=== PATIENT | male | born 1970 | race Caucasian/White ===

== ENCOUNTER 2018-11-19 01:57 | Emergency (ER) | payer OTHER ==
[2018-11-19 02:16] VITALS: TEMP 98.7
--- NOTE | 2018-11-19 03:03 | ED ---
General Adult HPI - General Chief complaint: Extremity Injury, Lower Stated complaint: [facility] leg pain Time Seen by Provider: 11/19/18 02:21 Source: patient, RN notes reviewed, old records reviewed Mode of arrival: ambulatory Limitations: no limitations - History of Present Illness Initial comments: 48-year-old male patient presents to ED with left calf injury. Patient reports that he stepped down from a ladder when he felt a pop in his left calf region. Patient now has pain with walking. Patient denies any fall. Patient denies any other complaints. Systemic: Pt denies fatigue, fever/chills, rash. Pt denies weakness, night sweats, weight loss. Neuro: Pt denies headache, visual disturbances, syncope or pre-syncope. HEENT: Pt denies ocular discharge or irritation, otalgia, rhinorrhea, pharyngitis or notable lymphadenopathy. Cardiopulmonary: Pt denies chest pain, SOB, heart palpitations, dyspnea on exertion. Abdominal/GI: Pt denies abdominal pain, n/v/d. : Pt denies dysuria, burning w/ urination, frequency/urgency. Denies new onset urinary or bowel incontinence. MSK: Pt denies loss of strength or function in extremities. Neuro: Pt denies new onset weakness, paresthesias. - Related Data Allergies Allergy/AdvReac Type Severity Reaction Status Date / Time bee venom protein (honey bee) Allergy Anaphylaxis Verified 11/19/18 02:16 Review of Systems ROS Statement: Those systems with pertinent positive or pertinent negative responses have been documented in the HPI. ROS Other: All systems not noted in ROS Statement are negative. Past Medical History Past Medical History: No Reported History History of Any Multi-Drug Resistant Organisms: None Reported Past Surgical History: No Surgical Hx Reported Past Psychological History: No Psychological Hx Reported Smoking Status: Current every day smoker Past Alcohol Use History: Occasional Past Drug Use History: None Reported General Exam - General Exam Comments Initial Comments: Constitutional: NAD, AOX3, Pt has pleasant affect. HEENT: NC/AT, trachea midline, neck supple, no lymphadenopathy. Posterior pharynx non erythematous, without exudates. External ears appear normal, without discharge. Mucous membranes moist. Eyes PERRLA, EOM intact. There is no scleral icterus. No pallor noted. Cardiopulmonary: RRR, no murmurs, rubs or gallops, no JVD noted. Lungs CTAB in a nterior and posterior hernandez. No peripheral edema. Abdominal exam: Abdomen soft and non-distended. Abdomen non-tender to palpation in all 4 quadrants. Bowel sounds active in LLQ. No hepatosplenomegaly. No ecchymosis Neuro: CN II-XII grossly intact. No nuchal rigidity. MSK: Plantar and dorsiflexion of left lower extremity intact. Distal pulses intact equal. Posterior calf mildly tenderness to palpation. Pederson test negative. homans sign negative bilaterally. Patient placed in posterior ankle splint. Patient neurovascularly intact after splint placement. Posterior tibialis and radial pulse +2 bilaterally. Sensation intact in upper and lower extremities. Full active ROM in upper and lower extremities, 5/5 stregnth. Limitations: no limitations Course Vital Signs 11/19/18 02:13 Temperature 98.7 F Pulse Rate 84 Respiratory 18 Rate Blood Pressure 142/87 O2 Sat by Pulse 96 Oximetry Medical Decision Making - Medical Decision Making 48-year-old male patient presents to ED with left calf injury. Patient reports that he stepped down from a ladder when he felt a pop in his left calf region. Patient now has pain with walking. Patient denies any fall. Patient denies any other complaints. Patient vital signs stable, afebrile. Physical exam displayed: Plantar and dorsiflexion of left lower extremity intact. Distal pulses intact equal. Posterior calf mildly tenderness to palpation. Pederson test negative. homans sign negative bilaterally. Patient placed in posterior ankle splint. Patient neurovascularly intact after splint placement. When fell and tibia-fibula did not display acute process. Patient will discharge, will use crutches, will not bear weight until orthopedic follow-up. Patient will return here if condition worsens in any way. Case discussed with Dr. Apodaca. Disposition Clinical Impression: Gastrocnemius strain Disposition: HOME SELF-CARE Condition: Stable Instructions (If sedation given, give patient instructions): Muscle Strain (ED) Additional Instructions: Patient to adhere to previously discussed treatment plan and will take medication(s) as directed. Patient to follow up with PCP in 1-2 days. Patient to return to ED if symptoms do not improve. Leads use crutches, please do not bear weight on leg until orthopedic follow-up. Please follow up with orthopedic consult 1-2 days. Please return to ER if condition worsens in any way. Is patient prescribed a controlled substance at d/c from ED?: No Referrals: Anuj Connor MD [Primary Care Provider] - 1-2 days Eron Mccauley MD [STAFF PHYSICIAN] - 1-2 days
--- NOTE | 2018-11-19 03:04 | XR ---
EXAM: XR Left Tibia and Fibula, 2 Views CLINICAL HISTORY: pt. Stepping down a ladder and felt something pop in his left calf. TECHNIQUE: Frontal and lateral views of the left tibia and fibula. COMPARISON: No relevant prior studies available. FINDINGS: Bones/joints: 9 x 11 mm os trigonum. No acute fracture. No dislocation. Soft tissues: Unremarkable. No radiopaque foreign body. IMPRESSION: No acute fracture.
[2018-11-19 03:32] VITALS: BP 142/88; PULSE 80; RESP 17
== END 2018-11-19 03:40 | disposition home or self-care (01) ==
LOC: EC 01:57
DX: S86.112A Strain of other muscle(s) and tendon(s) of posterior muscle group at lower leg level, left leg, initial encounter (principal); F17.200 Nicotine dependence, unspecified, uncomplicated; Z91.030 Bee allergy status; X50.9XXA Other and unspecified overexertion or strenuous movements or postures, initial encounter; Y92.69 Other specified industrial and construction area as the place of occurrence of the external cause; Y99.0 Civilian activity done for income or pay
CPT/HCPCS: 29515; 99284

== ENCOUNTER 2018-11-29 09:33 | Emergency (ER) | payer BC ==
[2018-11-29] MEDS ORDERED: IBUPROFEN 600 MG TAB PO STA (10:03)
[2018-11-29] MEDS ORDERED: HYDROcodone/APAP 5-325MG 1 EACH TAB PO STA (10:03)
--- NOTE | 2018-11-29 10:06 | ED ---
General Adult HPI - General Chief complaint: Extremity Injury, Upper Stated complaint: Wrist/arm injury Time Seen by Provider: 11/29/18 09:40 Source: patient, RN notes reviewed Mode of arrival: ambulatory Limitations: no limitations - History of Present Illness Initial comments: This is a 48-year-old male presents emergency Department complaining of right wrist pain. Patient states last night he was up patient slipped on a boat fell on his wrist and ever since then his wrist has been hurting and very tender to palpation. Patient states he has full movement of his fingers elbow and shoulder. Patient states any movement of the wrist hurts. Patient states he did continue finishing throughout the night. Patient denies any other injury patient denies any head or neck. - Related Data Home Medications Medication Instructions Recorded Confirmed Ibuprofen [Motrin Ib] 400 mg PO Q6H PRN 11/29/18 11/29/18 Allergies Allergy/AdvReac Type Severity Reaction Status Date / Time bee venom protein (honey bee) Allergy Anaphylaxis Verified 11/29/18 10:18 Review of Systems ROS Statement: Those systems with pertinent positive or pertinent negative responses have been documented in the HPI. ROS Other: All systems not noted in ROS Statement are negative. Past Medical History Past Medical History: No Reported History History of Any Multi-Drug Resistant Organisms: None Reported Past Surgical History: No Surgical Hx Reported Past Psychological History: No Psychological Hx Reported Smoking Status: Current every day smoker Past Alcohol Use History: Occasional Past Drug Use History: None Reported General Exam - General Exam Comments Initial Comments: GENERAL: Patient is well-developed and well-nourished. Patient is nontoxic and well- hydrated and is in mild distress. ENT: Neck is soft and supple. Neck has full range of motion without eliciting any pain. EYES: The sclera were anicteric and conjunctiva were pink and moist. Extraocular movements were intact and pupils were equal round and reactive to light. Eyelids were unremarkable. SKIN: Skin is clear with no lesions or rashes and otherwise unremarkable. NEUROLOGIC: Patient is alert and oriented x3. Cranial nerves II through XII are grossly intact. Motor and sensory are also intact. Normal speech, volume and content. Symmetrical smile. MUSCULOSKELETAL: Right wrist is tender to palpation along the radius and posterior aspect of the wrist. LYMPHATICS: No significant lymphadenopathy is noted PSYCHIATRIC: Normal psychiatric evaluation. Limitations: no limitations Course Vital Signs 0511/29/18 11/29/18 09:35 11:17 11:35 Temperature 98.8 F Pulse Rate 91 70 68 Respiratory 18 18 15 Rate Blood Pressure 136/80 134/71 133/80 O2 Sat by Pulse 95 98 99 Oximetry Procedures - Orthopedic Fracture Reduction Fracture #1 Consent Obtained: verbal consent, written consent Side: right Fracture Reduction Location: radius Analgesia: procedural sedation Technique: direct manipulation, traction/counter-traction Post-Reduction Neuro Exam: intact Post-Reduction Vascular Exam: intact Splint Applied: Yes Patient Tolerated Procedure: well - Orthopedic Splinting/Casting Injury #1 Side: right Upper Extremity Injury Location: short arm, wrist Upper Extremity Immobilizer: volar splint - Procedural Sedation Procedural Sedation Start Time: 11:40 Procedural Sedation Stop Time: 12:05 Indications: fracture/dislocation reduction ASA Class: I Preparation: patient monitor applied, pulse oximeter, capnometry used, supplemental O2 applied IV Etomidate Dose (mgs): 20 Complications: none Patient Tolerated Procedure: well Medical Decision Making - Medical Decision Making X-ray shows a comminuted distal radius fracture with displacement anteriorly. Disposition Clinical Impression: Distal radius fracture Disposition: HOME SELF-CARE Condition: Good Instructions (If sedation given, give patient instructions): Wrist Fracture in Adults (ED) Is patient prescribed a controlled substance at d/c from ED?: No Referrals: Burton Resendiz MD [Medical Doctor] - 1-2 days Time of Disposition: 11:48
--- NOTE | 2018-11-29 10:54 | XR ---
EXAMINATION TYPE: XR wrist complete RT DATE OF EXAM: 11/29/2018 COMPARISON: None HISTORY: Fall TECHNIQUE: 4 view right wrist FINDINGS: There is a comminuted fracture the distal metaphyseal radius. This is partially impacted. T here is anterior angulation of the distal fracture fragments. Intra-articular extension is evident. No additional fractures are evident. There is pain at the anatomic snuff box, nuclear medicine bone scan can be performed. There is clinic al concern for scapholunate disassociation, MRI would be recommended. Subtle widening of the scapholu vonda junction is not excluded. This space currently measures 0.3 cm. IMPRESSION: 1. Comminuted fracture distal metaphyseal radius with intra-articular extension and anterior angulat ion of the distal fracture fragments. 2. Some mild prominence of the scapholunate space may be present. Scapholunate disassociation is not excluded.
[2018-11-29] MEDS ORDERED: ETOMIDATE 2 MG/ML 10 ML VIAL IVP STA (11:19)
--- NOTE | 2018-11-29 11:58 | XR ---
EXAMINATION TYPE: XR wrist limited RT DATE OF EXAM: 11/29/2018 COMPARISON: Earlier exam HISTORY: Fracture radius TECHNIQUE: 2 views right wrist FINDINGS: Images are obtained through a fiberglass splint. Comminuted fracture the distal radius is a gain evident. There appears to be some reduction of the fracture. Soft tissue swelling remains presen t over the wrist. IMPRESSION: 1. Status post right wrist comminuted fracture reduction and fiberglass splint placement.
[2018-11-29] MEDS ORDERED: ONDANSETRON 4 MG/2 ML VIAL IVP STA (12:03)
[2018-11-29] MEDS ORDERED: HYDROmorphone 1 MG/ML 1 ML SYRINGE IVP STA (12:03)
[2018-11-29 12:54] VITALS: BP 138/85; PULSE 63; RESP 15
[2018-11-29 12:55] VITALS: TEMP 97.9
== END 2018-11-29 12:45 | disposition home or self-care (01) ==
LOC: EC 09:33
DX: S59.201A Unspecified physeal fracture of lower end of radius, right arm, initial encounter for closed fracture (principal); F17.200 Nicotine dependence, unspecified, uncomplicated; Z91.030 Bee allergy status; W01.0XXA Fall on same level from slipping, tripping and stumbling without subsequent striking against object, initial encounter
CPT/HCPCS: 99283; 25605; 99152; 99153; 96374; 96375; 73100; 73110; J2405; J1170